=== PATIENT | female | born 1970 | race African-American/Black ===

== ENCOUNTER 2021-12-10 11:02 | Emergency (ER) | payer MEDICAID ==
[~2021-12-10] VITALS: Ht 162.6 cm; Wt 59.9 kg
[2021-12-10 11:10] VITALS: BP 161/79
--- NOTE | 2021-12-10 11:17 | NUR ---
PT SENT TO LOBBY
--- NOTE | 2021-12-10 12:00 | NUR ---
51/F PRESENTS TO ED WITH C/O INTERMITTENT BILATERAL LEG PAIN AND TINGLING X1 WEEK. STATES SHE HAS BEEN EXPERIENCING EPISODES OF NUMBNESS AND SWELLING, AND STATES HER "BALANCE IS OFF." DENIES RECENT INJURY OR TRAUMA, NO SIGNS OF, SWELLING, REDNESS OR TENDERNESS NOTED. PATIENT DENIES HEADACHE, DIZZINESS, NO SIGNS OF FACIAL DROOP OR SLURRED SPEECH.
[2021-12-10 12:41] LABS: BASOPHILS # (AUTO) 0.1 K/uL (0.00-0.22); HEMOGLOBIN 12.2 g/dL (12.0-16.0); MEAN CORPUSCULAR VOLUME 105.9 fL (80-94); WHITE BLOOD COUNT (AUTO) 5.3 K/uL (4.8-10.8)
[2021-12-10 12:50] LABS: BASOPHILS % (AUTO) 1.1 % (0.0-2.0); EOSINOPHILS % (AUTO) 0.2 % (0.0-4.0); HEMATOCRIT 35.5 % (36-48); LYMPHOCYTES # (AUTO) 1.4 K/uL (2.5-16.5); LYMPHOCYTES % (AUTO) 25.3 % (20.5-51.1); MEAN CORPUSCULAR HEMOGLOBIN 37 pg (27-31); MEAN CORPUSCULAR HGB CONC 35 g/dL (33-37); MONOCYTES # (AUTO) 0.4 K/uL (0.8-1.0); MONOCYTES % (AUTO) 6.6 % (1.7-9.3); NEUTROPHILS # (AUTO) 3.6 K/uL (1.8-7.7); NEUTROPHILS % (AUTO) 66.8 % (42.2-75.2); PLATELET COUNT (AUTO) 281 K/uL (140-450); RED BLOOD CELL COUNT(AUTO) 3.35 MIL/uL (4.20-5.40); RED CELL DISTRIBUTION WIDTH 17.8 % (11.6-13.7)
[2021-12-10 12:57] LABS: ALBUMIN 3.2 g/dL (3.4-5.0); ANION GAP 18.9 (8-16); CARBON DIOXIDE 24.2 mmol/L (21-32); CREATININE 0.7 mg/dL (0.6-1.3); MAGNESIUM 1.5 mg/dL (1.8-2.4); POTASSIUM 3.1 mmol/L (3.5-5.1); TOTAL BILIRUBIN 0.3 mg/dL (0.0-1.0)
[2021-12-10] MEDS ORDERED: MAGNESIUM OXIDE 400 MG TAB PO ONE (13:20)
[2021-12-10] MEDS ORDERED: POTASSIUM CHLORIDE 10 MEQ TABER PO ONE (13:20)
[2021-12-10 14:56] VITALS: BP 162/87
--- NOTE | 2021-12-10 14:56 | NUR ---
Patient discharged with v/s stable. Written and verbal after care instructions ABOUT HYPOKALEMIA AND DEGENERATIVE DISK DISEASE given and explained. Patient verbalized understanding. Ambulatory with steady gait. All questions addressed prior to discharge. Advised to follow up with PMD.
== END 2021-12-10 14:56 | disposition home or self-care (01) ==
LOC: MED 11:02
DX: M21.372 Foot drop, left foot (principal); E87.6 Hypokalemia; I10 Essential (primary) hypertension; F17.210 Nicotine dependence, cigarettes, uncomplicated; Z88.6 Allergy status to analgesic agent
CPT/HCPCS: 36415; 70450; 72128; 72131; 80053; 83735; 85025; 99284